=== PATIENT | male | born 1965 | race Asian ===

== ENCOUNTER 2023-11-09 18:15 | Emergency (ER) | payer SELFPAY ==
[2023-11-09] VITALS (7 sets, daily range): BP systolic 125–168; BP diastolic 79–87; BMI 29.1
[2023-11-09 18:42] LABS: % Basophils 0.7 % (0-2); % Eosinophils 4.5 % (0-6); % Immature Granulocytes 0.1 % (0-0.5); % Lymphocytes 47.2 % (20.5-51.1); % Neutrophils 40.5 % (42.2-75.2); Absolute Basophils 0.1 10^3/uL (0-0.2); Absolute Eosinophils 0.3 10^3/uL (0-0.7); Absolute Lymphocytes 3.2 10^3/uL (1.2-3.4); Absolute Monocytes 0.5 10^3/uL (0.1-0.6); Absolute Neutrophils 2.7 10^3/uL (1.4-6.5); Hematocrit 39.9 % (39.0-52.0); Hemoglobin 14.3 g/dL (13.0-18.0); Mean Corp Hgb Conc. 35.8 g/dL (33.0-37.0); Mean Corpuscular Hgb 29.9 pg (27.0-31.0); Mean Corpuscular Volume 83.5 fL (80.0-94.0); Mean Platelet Volume 8.7 fL (7.4-10.4); Nucleated Red Blood Cells % 0 % (-); Platelet Count 368 10^3/uL (130-400); Red Blood Cell Count 4.78 10^6/uL (4.70-6.10); Red Cell Dist. Width 11.4 % (11.5-14.5); White Blood Cell Count 6.7 10^3/uL (4.8-10.8)
[2023-11-09 18:51] LABS: Urine Albumin Negative (Neg - Trace); Urine Bilirubin Negative (Negative); Urine Character Clear (Clear); Urine Color Yellow; Urine Glucose Negative (Negative); Urine Ketone Negative (Negative); Urine Leukocyte Negative (Negative); Urine Nitrite Negative (Negative); Urine Occult Blood 1+ (Negative); Urine Urobilinogen Negative (Neg - 1+)
[2023-11-09 18:54] LABS: ALT (SGPT) 39 U/L (0-50); AST (SGOT) 23 U/L (17-59); Albumin 4.6 g/dl (3.5-5.0); Alkaline Phosphatase 87 U/L (38-126); Blood Urea Nitrogen 13 mg/dl (9-20); Calcium 9.9 mg/dl (8.4-10.2); Carbon Dioxide 27 mmol/L (22-30); Chloride 99 mmol/L (98-107); Glucose 247 mg/dl (70-99); Sodium 137 mmol/L (135-145); Total Bilirubin 0.5 mg/dl (0.2-1.3); Total Protein 7.9 g/dl (6.3-8.2); eGFR > 60.00
[2023-11-09 19:01] LABS: Urine Squamous Cell 0-2 /LPF (Few); Urine White Cell 0-2 /HPF (0-5)
[2023-11-09 19:02] LABS: Urine Bacteria Few (Negative)
[2023-11-09] MEDS: OMNIPAQUE 50 ML PO (19:11)
[2023-11-09 20:11] LABS: Lipase 49 U/L (23-300)
--- NOTE | 2023-11-09 23:16 | ED.GENMED ---
History of Present Illness
General
Chief Complaint: Flank Pain
Time Seen by Provider: 11/09/23 18:45
Travel History
Have you had any contact with someone who has COVID-19?: No
Do you have any symptoms of coronavirus? Fever > 100 degrees, chills, cough, shortness of breath, sore throat, loss of taste or smell, muscle aches, or headache?: No
History of Present Illness
History of Present Illness:
58-year-old male presents emergency room due to bilateral flank pain, left greater than right and dark from the urine for the past 2 months. He has not seen a doctor due to being new to the area. He is on tamsulosin and acid reflux medication
Phy Exam
Physical Exam
Physical Exam:
Physical Exam
General: no apparent distress, not acutely ill
Neck: supple. no meningeal signs. normal posterior pharynx
Heart: s1/s2 regular rate and rhythm, no murmur. equal radial
pulses.
HEENT: Pupils equal round reactive to light, EOMI
Lungs: no acute respiratory distress. clear bilaterally
Abdomen: normal bowel sounds. not tender. no CVAT
Neuro: alert and oriented. no focal neurological deficits cranial nerves II through XII intact
Skin: no rash
Psychiatric: well kept. interactive and cooperative
Extremities: no edema. no calf tenderness. negative homans. good distal pulses
Course
Orders/Labs/Results
Orders:
Orders
11/09/23 18:26
CBC/With Diff [Complete Blood Count/With Diff] Urgent
CMP [Comprehensive Metabolic Panel] Urgent
Lipase Urgent
11/09/23 18:31
Urinalysis Reflex To Culture Urgent
Date Specimen was Collected: 11/09/23
Time Specimen was Collected: 18:22
Urine Microscopic Reflex Cult Urgent
11/09/23 18:55
Iohexol [Omnipaque] See Protocol PO NOW STA
11/09/23 18:59
CT Abd/pel W Iv And Oral Contr Urgent
Comment:
Reason For Exam: left flank pain, dark urine
11/09/23 19:47
CT Head W/o Iv Contrast Urgent
Comment:
Reason For Exam: headache
Abnormal Lab Results
11/09/23 11/09/23
18:26 18:31
RDW 11.4 L %
(11.5-14.5)
Neutrophils % 40.5 L %
(42.2-75.2)
Glucose 247 H mg/dl
(70-99)
Ur Occult Blood Reflex 1+ A
(Negative)
Urine RBC 3-6 A /HPF
(0-2)
Urine Bacteria (Reflex) Few A
(Negative)
11/09/23 18:26
11/09/23 18:26
Vital Signs
Initial and Last Documented VS:
Initial Vital Signs
Temp Pulse Resp BP Pulse Ox
98.6 F 78 18 168/86 98
11/09/23 18:17 11/09/23 18:17 11/09/23 18:17 11/09/23 18:17 11/09/23 18:17
Last Documented Vital Signs
Temp Pulse Resp BP Pulse Ox
98.6 F 87 18 134/83 97
11/09/23 18:17 11/09/23 19:17 11/09/23 19:17 11/09/23 22:00 11/09/23 22:00
MDM/Problems Addressed
Differential Diagnosis Includes:
Kidney stone, inguinal hernia
MDM/Problems Addressed:
58-year-old male with left flank pain, microscopic hematuria, right inguinal hernia. Stable for discharge. [facility] with [facility], [facility].
Chronic conditions affecting care: DM
Acute Exacerbation and/or Progression of Chronic Illness: DM
*Radiology
Radiology exam reviewed: radiology read reviewed (CT abdomen pelvis right inguinal hernia, small umbilical hernia, IVC lipoma)
*Pulse Oximetry
Patient hypoxic: no
*EKG
Interpreted by ED Provider?: NA
*Trace Clerk Interpretation
Rate: Trace Clerk- N/A
*Critical Care Note
Total Time (30-74mins, 75-104mins- exclusive of procedures): Not Applicable
Patient Management
Social determinants of health affecting care: Living situation
Escalation/DeEscalation of care consider admission/obs:
Admit not indicated
ED Attending Note
-
Portions of this chart may have been created with voice recognition software.� Occasional wrong word or��sound alike� substitutions may have occurred due to the inherent limitations of voice recognition software.
Discharge Plan
Departure
Patient Disposition: Home (Routine Discharge)
Date of Disposition: 11/09/23
Time of Disposition: 23:13
Patient with high blood pressure during this ER visit?: Yes
Condition: Good
Discharge Problem:
Bilateral flank pain, Hematuria, Hernia, inguinal, right
Instructions: Groin hernias, Blood in the urine (hematuria) in adults, Flank Pain (DC), BLOOD PRESSURE
Referrals:
[facility] - Call in 1-3 days for appt
Ger Lauren MD [Active] - Call in 1-3 days for appt
NONE,* [Family Provider] -
Interventions
Interventions:
*Risk Screen - Suicide Last Done: 11/09/23 19:10
*Neglect/Abuse Screening Last Done: 11/09/23 19:10
ED- Fall Risk Assessment Last Done: 11/09/23 19:30
*ED COVID-19 Vaccine History Last Done: 11/09/23 19:10
PO-Kbnmur-Njugmuyqee Assessment Last Done: 11/09/23 19:30
ED-Male Genitourinary Assessment Last Done: 11/09/23 19:30
== END 2023-11-09 23:28 | disposition home or self-care (01) ==
LOC: EMR 18:15
PROVIDERS: EMERGENCY PHYSICIAN Emergency Medicine
DX: R10.9 Unspecified abdominal pain (principal); R31.9 Hematuria, unspecified; K40.90 Unilateral inguinal hernia, without obstruction or gangrene, not specified as recurrent; E11.9 Type 2 diabetes mellitus without complications; K21.9 Gastro-esophageal reflux disease without esophagitis; Z79.899 Other long term (current) drug therapy
CPT/HCPCS: 99284; 70450; 74177; 80053; 81003; 81015; 83690; 85025; Q9967